=== PATIENT | male | born 1945 | race Caucasian/White ===

== ENCOUNTER 2020-11-22 12:23 | Emergency (ER) | payer MEDICARE, OTHER, SELFPAY ==
[2020-11-22 12:34] VITALS: BP 189/83; PULSE 96; RESP 16; TEMP 36.4; O2SAT 100
--- NOTE | 2020-11-22 12:38 | ED.MALEGU ---
HPI - Male Genitourinary General Chief complaint: Urogenital-Male Stated complaint: Poss Uti Time Seen by Provider: 11/22/20 12:38 Source: patient and RN notes reviewed History of Present Illness HPI Narrative: Patient is a 74-year-old male who presents the urgent care with complaints of a possible UTI. Patient states his last UTI was approximately 1 year ago and he has been getting them every 12 to 18 months since his prostate biopsy. Patient does have a history of prostate cancer and is currently not in remission. Patient states that his current symptoms started yesterday with urinary frequency and dysuria. Patient states that that is typical of his normal urinary tract infections. Patient states he attempted to call his PCP who has not returned his phone call yet today. Patient denies of any nausea, vomiting, fever, low back pain, abdominal pain. No other acute complaints. No acute distress noted. Patient aware of the plan of care. Some parts of this dictation were generated by voice recognition software and may contain typographical and/or grammatical inaccuracies. Related Data Home Medications Medication Instructions Recorded Confirmed allopurinol 300 mg PO DAILY 11/22/20 11/22/20 ezetimibe 10 mg PO DAILY 11/22/20 11/22/20 glipizide 5 mg PO DAILY 11/22/20 11/22/20 insulin glargine [Lantus Solostar 36 unit SUBCUT DAILY 11/22/20 11/22/20 U-100 Insulin] lisinopril 10 mg PO DAILY 11/22/20 11/22/20 meloxicam 15 mg PO DAILY 11/22/20 11/22/20 metformin 1,000 mg PO BID 11/22/20 11/22/20 trazodone 150 mg PO HS 11/22/20 11/22/20 Allergies Allergy/AdvReac Type Severity Reaction Status Date / Time Sulfa (Sulfonamide AdvReac Unknown Other Verified 11/22/20 12:45 Antibiotics) Review of Systems Review of Systems: Narrative: CONSTITUTIONAL: Denies fever, chills, or sweats. EYES: Denies visual changes, redness, or discharge. ENT: Denies rhinorrhea, congestion, sore throat, or otalgia. CARDIOVASCULAR: Denies chest pain, palpitations, or edema. RESPIRATORY: Denies cough or dyspnea. GASTROINTESTINAL: Denies abdominal pain, nausea, vomiting, or diarrhea. GENITOURINARY: Reports of dysuria and urinary frequency SKIN: Denies rash or itching. MUSCULOSKELETAL: Denies back pain, joint pain, or myalgia. NEUROLOGIC: Denies headache, numbness, or weakness. All other systems reviewed are negative, except as documented in HPI. PMFSH Comments At the time of my signature, I reviewed and agree with the nursing past medical, surgical, social, and family history. There is no relevant family history pertinent to the patient complaint. Exam Narrative: Exam Narrative: GENERAL: This is a well-nourished, well-developed patient, in no apparent distress. HEAD: normocephalic, atraumatic. EYES: PERRL. Sclera clear/white. Vision is grossly intact. EARS: External ears normal NOSE: External nose normal with no obvious nasal discharge, nares without redness, no rhinorrhea. THROAT: Mucous membranes moist NECK: Neck supple GASTROINTESTINAL: Abdomen soft, non-tender, nondistended. SKIN: warm, intact with no suspicious lesions or rash, good texture and turgor. NEURO: awake, alert, and oriented to person, place and time. There were no obvious focal neurologic abnormalities. EXTREMITIES: No clubbing, cyanosis, or edema. BACK: Negative CVA tenderness Course Vital Signs Vital signs: Vital Signs Temperature 97.6 F 11/22/20 12:34 Pulse Rate 96 11/22/20 12:34 Respiratory Rate 16 11/22/20 12:34 Blood Pressure 189/83 H 11/22/20 12:34 Pulse Oximetry 100 11/22/20 12:34 Temperature 97.6 F 11/22/20 12:34 Pulse Rate 96 11/22/20 12:34 Respiratory Rate 16 11/22/20 12:34 Blood Pressure 189/83 H 11/22/20 12:34 Pulse Oximetry 100 11/22/20 12:34 Reviewed-patient is informed that they may have pre-hypertension or hypertension based on a blood pressure reading in the department. I recommend the patient call the primary care pr
[2020-11-22 13:02] VITALS: BP 162/76
== END 2020-11-22 13:02 | disposition home or self-care (01) ==
PROVIDERS: Emergency Provider Nurse Practitioner Family; PCP Internal Medicine
DX: N39.0 Urinary tract infection, site not specified (principal); E78.00 Pure hypercholesterolemia, unspecified; I10 Essential (primary) hypertension; M19.90 Unspecified osteoarthritis, unspecified site; E11.9 Type 2 diabetes mellitus without complications; Z85.46 Personal history of malignant neoplasm of prostate
CPT/HCPCS: 81003; 87086; 87088; 99213; G0463

== ENCOUNTER 2025-10-31 15:00 | Outpatient (RCR) | payer MEDICARE, OTHER, SELFPAY | END 2025-10-31 23:59 | disposition home or self-care (01) | LOC: ANHCPREHAB 15:00 | PROVIDERS: PCP Internal Medicine; Visit Provider Internal Medicine | DX: Z95.2 Presence of prosthetic heart valve (principal) | CPT/HCPCS: 93798 ==